=== PATIENT | female | born 1950 | race Asian ===

== ENCOUNTER 2019-01-14 21:31 | Emergency (ER) | payer SELFPAY ==
[~2019-01-14] VITALS: Ht 154.9 cm; Wt 43.2 kg
[2019-01-14] MEDS ORDERED: ACETAMINOPHEN 325 MG TABLET PO ONE (22:45)
[2019-01-14] MEDS ORDERED: IBUPROFEN 400 MG TABLET PO ONE (22:45)
[2019-01-15 00:11] VITALS: BP 202/120
== END 2019-01-15 00:31 | disposition home or self-care (01) ==
LOC: EMS 21:32
DX: I10 Essential (primary) hypertension (principal); R07.89 Other chest pain; V49.9XXA Car occupant (driver) (passenger) injured in unspecified traffic accident, initial encounter; Y93.89 Activity, other specified; Y92.89 Other specified places as the place of occurrence of the external cause; Y99.8 Other external cause status

== ENCOUNTER 2020-03-21 14:33 | Emergency (ER) | payer MEDICARE ==
[~2020-03-21] VITALS: Ht 157.5 cm; Wt 50.0 kg
[2020-03-21] MEDS ORDERED: SODIUM CHLORIDE 0.9% 1,000 ML IV ONE (16:15)
[2020-03-21] MEDS ORDERED: LABETALOL HCL 5 MG/ML 20 ML VIAL IVP ONE (17:15)
[2020-03-21 17:23] LABS: BASOPHILS % (AUTO) 0.6 % (0.0-2.0); EOSINOPHILS % (AUTO) 0.2 % (1.0-6.0); HEMATOCRIT 37.9 % (36-46); LYMPHOCYTES # (AUTO) 1.2 K/uL (1.0-4.8); LYMPHOCYTES % (AUTO) 15.5 % (22.0-44.0); MEAN CORPUSCULAR HGB CONC 31.6 G/dL (31.0-37.0); MEAN CORPUSCULAR VOLUME 70 fL (80-100); MONOCYTES # (AUTO) 0.5 K/uL (0.1-1.0); MONOCYTES % (AUTO) 5.7 % (2.0-9.0); NEUTROPHILS # (AUTO) 6.2 K/uL (1.8-7.7); PLATELET COUNT (AUTO) 243 K/uL (150-450); RED BLOOD CELL COUNT(AUTO) 5.44 MIL/uL (4.00-5.20); RED CELL DISTRIBUTION WIDTH 15.4 % (11.5-14.5)
[2020-03-21 17:41] LABS: ANION GAP 9 mmol/L (8-16); CALCIUM, TOTAL 9.4 mg/dL (8.8-10.5); CARBON DIOXIDE 29 mmol/L (22-29); CHLORIDE 96 mmol/L (98-107); CREATININE 0.85 mg/dL (0.60-1.30); GLOMERULAR FILTR. RATE CALC > 60 mL/min (>60); GLUCOSE,RANDOM 122 mg/dL (70-110); POTASSIUM 3.6 mmol/L (3.5-5.1); SODIUM SERUM 134 mmol/L (136-145); UREA NITROGEN, BLOOD 15 mg/dL (7-18)
[2020-03-21 17:48] LABS: ALANINE AMINOTRANSFERASE 23 U/L (12-78); ALBUMIN 3.9 g/dL (3.4-5.0); ALKALINE PHOSPHATASE 87 U/L (46-116); ASPARTATE AMINOTRANSFERASE 19 U/L (15-37); BILIRUBIN,TOTAL 0.4 mg/dL (0.1-1.0); TOTAL PROTEIN, SERUM 8.4 g/dL (6.4-8.2)
[2020-03-21 17:52] LABS: COVID AG,FIA SOURCE NASOPHARYNGEAL
[2020-03-21 18:01] LABS: B-TYPE NATRIURETIC PEPTIDE 38 pg/mL (0-100)
[2020-03-21] MEDS ORDERED: AmLODIPine BESYLATE 5 MG TABLET PO ONE (18:45)
[2020-03-21 20:09] VITALS: BP 153/78
== END 2020-03-21 20:50 | disposition home or self-care (01) ==
LOC: EMS 14:33
DX: I10 Essential (primary) hypertension (principal); Z20.822 Contact with and (suspected) exposure to COVID-19
CPT/HCPCS: 70450; 71045; 80053; 82948; 83880; 84484; 85025; 87426; 93005; 96361; 96374; 99285; J3490; J7030